=== PATIENT | female | born 1945 | race Caucasian/White ===

== ENCOUNTER 2017-10-15 23:20 | Emergency (ER) | payer MEDICARE, OTHER ==
[~2017-10-15] VITALS: Ht 167.6 cm; Wt 82.6 kg
[~2017-10-15 23:20] MED LIST: APAP500; FLECAINIDE ACET50 M1 PO; LASIX 20 MG TAB20 MG; LEVOTHYROXINE 0.1 MG; LOPRESSOR50; MYRBETRIQ50 MG PO; NEURONTIN 300300 M1; NORVASC5 MG PO; OMEPRAZOLE; POTASSIUM CL; REQUIP 1 MG TABL1 M1 PO; TRAZODONE HCL50 MG PO; VITAMIN D2000 UNIT; VOLTAREN GEL 1100 G2; XARELTO20 MG
[2017-10-15 23:48] LABS: ABSOLUTE EOSINOPHILS 0.1 thou/uL (0.0-0.7); ABSOLUTE LYMPHOCYTES 1.5 thou/uL (0.8-5.3); ABSOLUTE MONOCYTES 0.5 thou/uL (0.0-1.2); ABSOLUTE NEUTROPHILS 2.4 thou/uL (1.6-8.1); BASOPHILS 0.7 %; EOSINOPHILS 2.1 %; HEMOGLOBIN 13.4 gm/dL (12.0-15.0); LYMPHOCYTES 34.3 %; MCH 29.8 pg (26.0-34.0); MCHC 34.2 g/dL (28.0-37.0); MONOCYTES 10.8 %; MPV 8.9 fl. (7.2-11.1); NUCLEATED RBCS 0 /100WBC; PLATELET COUNT* 144 thou/uL (150-400); POLYS 52.1 %; RBC 4.49 mil/uL (4.20-5.00); WBC 4.5 thou/uL (4.0-11.0)
[2017-10-15 23:56] LABS: ANION GAP 8 mmol/L (7-16); BUN 18 mg/dL (7-18); CALCIUM 8.9 mg/dL (8.5-10.1); CHLORIDE 104 mmol/L (98-107); CO2 29 mmol/L (21-32); CREATININE 1.1 mg/dL (0.6-1.3); GLUCOSE 135 mg/dL (70-99); POTASSIUM 3.5 mmol/L (3.5-5.1); SODIUM 141 mmol/L (136-145)
[2017-10-16 00:05] LABS: APTT 28.3 Seconds (25.0-31.3); INR 1.1; PROTIME 10.6 Seconds (9.20-11.50)
[2017-10-16 00:14] LABS: ALBUMIN 3.8 g/dL (3.4-5.0); ALKALINE PHOSPHATASE 119 U/L (46-116); CK-MB MASS 2.1 ng/mL (<0.5-3.6); LIPASE 156 U/L (73-393); NT-PRO BRAIN NAT PEPTIDE 436 pg/mL (<300); SGOT 12 U/L (15-37); SGPT 19 U/L (30-65); TOTAL BILIRUBIN 0.3 mg/dL (<0.1-1.0); TROPONIN-I LEVEL <0.06 ng/mL (<0.06)
[2017-10-16 00:28] VITALS: BP 117/66
--- NOTE | 2017-10-16 10:25 | EKG ---
[place] [address] ELECTROCARDIOGRAM REPORT Name: DAVID MESA Room: [facility]#: [id number] Admission: 10/15/17 Attend Phys: Discharge: 10/16/17 Date of : 45 Report #: [id number] THIS REPORT FOR: //name// [facility] ED Test Date: 2017-10-15 Test Time: 23:29:57 Pat Name: DAVID MESA Department: Room: Gender: F Senior Quality Assurance Engineer: JONAH : 1945 Requested By: Nico Carter Order Number: [id number] MD: Gilmer Nichols Measurements Intervals [place] Rate: 71 P: 56 [place]: 140 QRS: 11 QRSD: 99 T: 64 QT: 447 QTc: 486 Interpretive Statements Sinus rhythm Probable left atrial enlargement Mild ST depression, lateral leads Borderline prolonged QT interval Compared to ECG 06/03/2017 21:27:01 ST (T wave) deviation now present Electronically Signed On 10-16-2017 10:25:06 HUMAN RESOURCES MANAGER MANUFACTURING by Gilmer Nichols [email or web address] <ELECTRONICALLY SIGNED> By: Gilmer Nichols MD, [facility] 10/16/17 1025 28 28 Gilmer Nichols MD, FAC /EPI
== END 2017-10-16 00:29 | disposition home or self-care (01) ==
LOC: M.ERS 23:20
PROVIDERS: Family Medicine
DX: R00.2 Palpitations (principal); K21.9 Gastro-esophageal reflux disease without esophagitis; F10.99 Alcohol use, unspecified with unspecified alcohol-induced disorder; Z90.711 Acquired absence of uterus with remaining cervical stump; Z88.2 Allergy status to sulfonamides; Z88.1 Allergy status to other antibiotic agents; Z88.8 Allergy status to other drugs, medicaments and biological substances

== ENCOUNTER → 2018-11-15 | Outpatient (CLI) | payer MEDICARE, OTHER | LOC: M.RAD 11:16 | DX: M54.5 Low back pain (principal); R05 Cough; Z90.49 Acquired absence of other specified parts of digestive tract ==

== ENCOUNTER 2019-03-27 21:13 | Inpatient (IN) | payer MEDICARE, OTHER ==
[~2019-03-27] VITALS: Ht 167.6 cm; Wt 80.3 kg
[~2019-03-27 21:13] MED LIST changes: -APAP500; -LASIX 20 MG TAB20 MG; +LASIX 20 MG TAB20 MG PO; -LEVOTHYROXINE 0.1 MG; -LOPRESSOR50; +LOPRESSOR50 PO; -NEURONTIN 300300 M1; +NEURONTIN 300300 M1 PO; -OMEPRAZOLE; +OMEPRAZOLE PO; -POTASSIUM CL; +POTASSIUM CL PO; +SYNTHROID300 MCG PO; +TYLENOL EXTRA500 MG PO; -VITAMIN D2000 UNIT; +VITAMIN D2000 UNIT PO; -VOLTAREN GEL 1100 G2; +VOLTAREN GEL 1100 G2 TOP; -XARELTO20 MG; +XARELTO20 MG PO
[2019-03-27 21:25] VITALS: BP 141/86
[2019-03-27 22:05] LABS: ABSOLUTE BASOPHILS 0.1 thou/uL (0.0-0.2); ABSOLUTE LYMPHOCYTES 1.8 thou/uL (0.8-5.3); ABSOLUTE MONOCYTES 0.4 thou/uL (0.0-1.2); ABSOLUTE NEUTROPHILS 2.9 thou/uL (1.6-8.1); BASOPHILS 1.3 %; EOSINOPHILS 0.9 %; HEMATOCRIT 41.5 % (37.0-47.0); HEMOGLOBIN 14.5 gm/dL (12.0-15.0); LYMPHOCYTES 34.4 %; MCH 30.7 pg (26.0-34.0); MCV 87.7 fL (80.0-100.0); MONOCYTES 7.8 %; MPV 8.8 fl. (7.2-11.1); NUCLEATED RBCS 0 /100WBC; PLATELET COUNT* 181 thou/uL (150-400); POLYS 55.6 %; RBC 4.72 mil/uL (4.20-5.00); RDW-CV 12.9 % (10.5-14.5); WBC 5.3 thou/uL (4.0-11.0)
[2019-03-27 22:16] LABS: PROTIME 10.7 Seconds (9.20-11.50)
[2019-03-27 22:17] LABS: ANION GAP 10 mmol/L (7-16); BUN 21 mg/dL (7-18); CALCIUM 9.6 mg/dL (8.5-10.1); CHLORIDE 106 mmol/L (98-107); CO2 25 mmol/L (21-32); GLUCOSE 92 mg/dL (70-99); POTASSIUM 3.6 mmol/L (3.5-5.1); SODIUM 141 mmol/L (136-145)
[2019-03-27 22:23] LABS: ALKALINE PHOSPHATASE 90 U/L (46-116); LIPASE 128 U/L (73-393); NT-PRO BRAIN NAT PEPTIDE 471 pg/mL (<300); SGOT 22 U/L (15-37); SGPT 29 U/L (30-65); TOTAL BILIRUBIN 0.6 mg/dL (<0.1-1.0); TOTAL PROTEIN 7.4 g/dL (6.4-8.2); TROPONIN-I LEVEL <0.06 ng/mL (<0.06)
--- NOTE | 2019-03-27 22:36 | NUR ---
CALLED TO ROOM PT HR RAPIDLY DROPPED MEDS GIVEN PT STABLE AT THIS TIME
[2019-03-28 02:19] VITALS: BP 114/43
--- NOTE | 2019-03-28 04:51 | NUR ---
PT HAS RESTED WELL THIS SHIFT. PT VOICED NO C/O OF PAIN OR DISCOMFORT. O2 2L BNC INTACT. DAVIES INTACT AND PATENT DRAINING CLEAR YELLOW URINE TO BEDSIDE BAG. MONITORS INTACT WITH ALARMS SET. NO ACUTE DISTRESS NOTED. WILLCONTINUE TO MONITOR
[2019-03-28 06:28] VITALS: BP 132/46
--- NOTE | 2019-03-28 15:40 | EKG ---
[place] [address] ELECTROCARDIOGRAM REPORT Name: DAVID MESA Room: [place] [address] ADM IN [facility]#: [id number] Admission: 03/27/19 Attend Phys: Apolonia Calderón MD Discharge: Date of : 45 Report #: [id number] THIS REPORT FOR: //name// [facility] ED Test Date: 2019-03-27 Test Time: 21:22:22 Pat Name: DAVID MESA Department: Room: [facility] Gender: F Wildlife Control Operator: MS : 1945 Requested By: Linda Mejia Order Number: [id number] MD: Nasir Gross Measurements Intervals [place] Rate: 148 P: [place]: QRS: 21 QRSD: 94 T: 65 QT: 340 QTc: 534 Interpretive Statements Atrial fibrillation with rapid V-rate ST depression, probably rate related Compared to ECG 10/15/2017 23:29:57 Sinus rhythm no longer present ST (T wave) deviation still present Electronically Signed On 03-28-2019 15:40:46 CDT by Nasir Gross [email or web address] <ELECTRONICALLY SIGNED> By: Nasir Gross MD, FACC 03/28/19 1540 21 21 Nasir Gross MD, [facility] /EPI
--- NOTE | 2019-03-28 15:42 | EKG ---
[place] [address] ELECTROCARDIOGRAM REPORT Name: DAVID MESA Room: [place] [address] ADM IN [facility]#: [id number] Admission: 03/27/19 Attend Phys: Apolonia Calderón MD Discharge: Date of : 45 Report #: [id number] THIS REPORT FOR: //name// [facility] ED Test Date: 2019-03-27 Test Time: 22:02:11 Pat Name: DAVID MESA Department: Room: [facility] Gender: F Living Manager: MS : 1945 Requested By: Linda Mejia Order Number: [id number] MD: Nasir Gross Measurements Intervals [place] Rate: 41 P: 0 SD: 57 QRS: 20 QRSD: 88 T: 80 QT: 453 QTc: 375 Interpretive Statements Sinus bradycardia with premature atrial contractions Delayed R-wave progression Repol abnrm suggests ischemia, anterolateral Compared to ECG 10/15/2017 23:29:57 Atrial premature complex(es) now present Early repolarization now present Possible ischemia now present Sinus rhythm no longer present ST (T wave) deviation no longer present Electronically Signed On 03-28-2019 15:42:04 CDT by Nasir Gross [email or web address] <ELECTRONICALLY SIGNED> By: Nsair Gross MD, FAC 03/28/19 154 01 01 Nasir Gross MD, [facility] /EPI
[2019-03-28 16:44] VITALS: BP 125/50
[2019-03-28 17:00] VITALS: BP 154/55
--- NOTE | 2019-03-28 17:39 | NUR ---
1700 PATIENT ADMITTED TO 219 PER BED FROM ER. AGREE WITH ADMISSION ASSESSMENT AND HISTORY. ORIENTED TO ROOM. SINUS CHENG
--- NOTE | 2019-03-28 18:40 | NUR ---
PATIENT RECEIVED FROM ER THIS AFTERNOON. VSS ALTHOUGH BRADYCARDIC. WILL CONTINUE TO MONITOR CLOSELY
[2019-03-28 23:48] VITALS: BP 143/98
[2019-03-29] VITALS (7 sets, daily range): BP systolic 149–182; BP diastolic 60–73
[2019-03-29 00:09] LABS: ABSOLUTE EOSINOPHILS 0.1 thou/uL (0.0-0.7); ABSOLUTE LYMPHOCYTES 1.1 thou/uL (0.8-5.3); ABSOLUTE MONOCYTES 0.3 thou/uL (0.0-1.2); ABSOLUTE NEUTROPHILS 1.8 thou/uL (1.6-8.1); BASOPHILS 0.8 %; EOSINOPHILS 1.9 %; HEMATOCRIT 35.5 % (37.0-47.0); LYMPHOCYTES 34.4 %; MCH 30.6 pg (26.0-34.0); MCHC 34.6 g/dL (28.0-37.0); MCV 88.5 fL (80.0-100.0); MONOCYTES 9.2 %; MPV 8.8 fl. (7.2-11.1); NUCLEATED RBCS 0 /100WBC; PLATELET COUNT* 120 thou/uL (150-400); POLYS 53.7 %; RBC 4.01 mil/uL (4.20-5.00); RDW-CV 12.7 % (10.5-14.5); WBC 3.3 thou/uL (4.0-11.0)
[2019-03-29 00:18] LABS: HEMOGLOBIN 12.3 gm/dL (12.0-15.0)
[2019-03-29 00:33] LABS: CALCIUM 8.6 mg/dL (8.5-10.1); POTASSIUM 4.5 mmol/L (3.5-5.1)
--- NOTE | 2019-03-29 01:23 | NUR ---
ASSUMED CARE OF PT AT 1900. PT IS ALERT AND ORIENTED. VSS. PERRLA. NO COMPLAINTS OF PAIN. PT IS IN A FIB ON THE TELEMETRY. PT IS RESTING COMFORTABLY IN BED. RESPIRATIONS ARE EVEN AND NONLABORED. WILL CONTINUE TO MONITOR PT.
--- NOTE | 2019-03-29 09:37 | NUR ---
ASSUMED CARE OF PT AT 0730. PT RESTING IN BED. PT A&0X4, DENIES ANY PAIN OR SHORTNESS OF BREATH AT THIS TIME. PT TRACING SB ON THE AIRCRAFT AIR CONDITIONING MECHANIC. ON RA SAT UPPER 90'S. PT UP AD JAKE IN ROOM. IVF. CARDIOLOGY CONSULT IN PLACE. PT GOAL FOR TODAY IS MONITOR HEART RATE AND RHYTHM, INCREASE ACTIVITY AND REMAIN FREE FROM CHEST PAIN, SHORTNESS OF BREATH AND DIZZINESS. AM ASSESSMENT CHARTED. MEDICATIONS PER MAR. PT REPOSITIONS SELF. HOURLY ROUNDING OBSERVED. BED IN LOW POSITION. CALL LIGHT WITHIN REACH. WILL CONTINUE PLAN OF CARE.
--- NOTE | 2019-03-29 09:50 | CON ---
[address] [address] CONSULTATION Name: DAVID MESA Room: [address] IN .R.#: [id number] Admission: 03/27/19 Attend Phys: Apolonia Calderón MD Discharge: Date of : 45 Report #: [id number] THIS REPORT FOR: //name// CC: Apolonia Tracy MD [facility] CARDIOLOGY CONSULT REASON FOR CONSULTATION: Atrial fibrillation with rapid ventricular response rate. HISTORY OF PRESENT ILLNESS: The patient is a very pleasant 73-year-old white female with a history of paroxysmal atrial fibrillation. She has been maintaining sinus rhythm on flecainide and metoprolol. She is chronically anticoagulated with Xarelto and having no bleeding problems. She noted on her I-watch last night that her heart rate was fast. She presented to the Emergency Room and was found to be in atrial fibrillation with rapid ventricular response rate. She was given a bolus of IV diltiazem, which she did convert with, but then developed profound bradycardia and received a single dose of atropine. At the time of my interview, the patient is stable. Her heart rate is in the 50s. She is in sinus rhythm. Initial EKG showed atrial fibrillation with rapid ventricular response rate. Troponins are unremarkable. She did note 2 separate occasions of atypical chest discomfort, but does not sound like angina. She also notes mild headache. She is without other cardiac complaints at this time. PAST MEDICAL HISTORY: 1. Paroxysmal atrial fibrillation. 2. Hypertension. 3. Chronic anticoagulation. 4. Hypercoagulable state. 5. Localized edema of the lower extremities. 6. History of retroperitoneal hematoma with Xarelto, remotely. 7. GERD. 8. Restless legs syndrome. 9. Status post partial hysterectomy. FAMILY HISTORY: Noncontributory. SOCIAL HISTORY: The patient is a lifelong nonsmoker. She drinks alcohol rarely or occasionally. ALLERGIES: PROPOXYPHENE, SULFAMETHOXAZOLE AND TRIMETHOPRIM. CURRENT MEDICATIONS: Xarelto 20 mg daily, flecainide 75 mg b.i.d., furosemide 20 mg daily, levothyroxine 0.1 mg daily, metoprolol tartrate 50 mg q.a.m. and [address] [place] [address] CONSULTATION Name: ALLHEMANTDAVID Wesley Room: [address]#: [id number] Admission: 03/27/19 Attend Phys: Apolonia Calderón MD Discharge: Date of : 45 Report #: [id number] q.p.m., omeprazole 20 mg daily, ropinirole 2 mg at bedtime, trazodone 100 mg p.o. at bedtime, gabapentin 300 mg t.i.d., vitamin D3 2000 units daily, Tylenol p.r.n., Myrbetriq 100 mg at bedtime, Voltaren gel topically as directed. REVIEW OF SYSTEMS: The patient reports mild palpitations, chest discomfort and headache. She denies chest pain or significant shortness of breath. Review of systems otherwise unremarkable. PHYSICAL EXAMINATION: VITAL SIGNS: Stable. Blood pressure of 163/59, pulse is 47 and regular. GENERAL: This is a pleasant lady who is in no distress. Mood and affect appropriate. HEENT: Extraocular muscles intact. Mucous membranes are moist. NECK: Shows no jugular venous distention or carotid bruit. LUNGS: Reveals clear lung miller without wheezes or rales. CARDIAC: Reveals a regular rhythm with normal S1, S2. I do not appreciate a gallop or murmur. ABDOMEN: Reveals normal bowel sounds. The abdomen is soft and nontender. EXTREMITIES: Shows no significant edema. Peripheral pulses are 2+ and palpable. SKIN: Dry. LABORATORY DATA: Reviewed. Sodium 141, potassium 3.6, chloride 106, bicarbonate 25, BUN 21, creatinine 1.0, serum glucose 92. LFTs are within normal limits. Troponin less than 0.06 on 3 separate occasions, white blood cell count 5.3, hemoglobin 14.5, platelet count 181,000. Chest x-ray shows no acute pulmonary abnormality. IMPRESSION AND RECOMMENDATION: 1. Recurrent paroxysmal atrial fibrillation. The patient is now back in sinus rhythm. I will increase her flecainide to 100 mg twice daily. Continue moderate dose beta sidney as tolerated and directed by pulse rate. Continue Xarelto for anticoagulation. 2. Hypertension. Blood pressure mildly elevated. The patient had been on losartan/hydrochlorothiazide. We will resume and adjust as needed for adequate blood pressure control. 3. Hypercoagulable state. Continue Xarelto. 4. Chronic anticoagulation. She is tolerating Xarelto without significant bleeding problem. 5. Localized edema presently stable. We will follow clinically. [address] [address] CONSULTATION Name: DAVID MESA Room: [address] IN M.R.#: [id number] Admission: 03/27/19 Attend Phys: Apolonia Calderón MD Discharge: Date of : 45 Report #: [id number] 6. Atypical chest pain. No indication of acute coronary syndrome. Consider outpatient stress testing. <ELECTRONICALLY SIGNED> By: Nasir Gross MD, FACC 03/29/19 0950 1145 2257Nasir Gross MD, FACC /nt
--- NOTE | 2019-03-29 11:22 | NUR ---
Pt is A&O. Resides at home with her . Active and independent. No DME. No hx of HH or SNF. Goal is home at dc, no needs anticipated. Following.
--- NOTE | 2019-03-29 16:32 | NUR ---
NO ACUTE CHANGES THROUGHOUT SHIFT. REFER TO CHARTING. PT CONTINUES TO TRACE SINUS CHENG ON THE BUCKET OPERATOR. MEDICATION ADJUSTMENTS MADE TODAY PER CARDIOLOGY. REFER TO EMAR. PT DENIES ANY PAIN OR SHORTNESS OF BREATH. ON RA SAT UPPER 90'S. PT UP AD JAKE IN ROOM. IVF. PT SLOWLY PROGRESSING TOWARDS GOALS. MEDICATIONS PER MAR. PT REPOSITIONS SELF. HOURLY ROUNDING OBSERVED. BED IN LOW POSITION. CALL LIGHT WITHIN REACH. WILL CONTINUE PLAN OF CARE.
[2019-03-30 04:00] VITALS: BP 98/33
[2019-03-30 08:00] VITALS: BP 114/51
--- NOTE | 2019-03-30 09:42 | NUR ---
ASSUMED CARE OF PT AT 0730. PT RESTING IN BED. PT A&0X4, DENIES ANY PAIN OR SHORTNESS OF BREATH AT THIS TIME. PT STATES SHE RESTED VERY WELL LAST NIGHT AND DOESNT REMEMBER ANYTHING. PT TRACING SINUS CHENG ON THE INTEGRATION SOFTWARE ENGINEER. VSS. ON RA SAT UPPER 90'S. PT UP AD JAKE IN ROOM. IVF. TROPS NEGATIVE. PT GOAL FOR TODAY IS PAIN AND ANXIETY MGMT, REMAIN IN SINUS RHYTHM- AND CARDIO CONSULT IN PLACE. AM ASSESSMENT CHARTED. MEDICATIONS PER DEC. PT REPOSITIONS SELF. HOURLY ROUNDING OBSERVED. BED IN LOW POSITION. CALL LIGHT WITHIN REACH. WILL CONTINUE PLAN OF CARE.
[2019-03-30] MEDS ORDERED: COZAAR 25 MG TA25 M2 PO (10:21)
[2019-03-30] MEDS ORDERED: PROCARDIA XL60 MG PO (10:21)
[2019-03-30 12:00] VITALS: BP 150/75
--- NOTE | 2019-03-30 13:40 | NUR ---
PT REMAINS IN SINUS RHYTHM. NO COMPLAINS OF CHEST PAIN OR SHORTNESS OF BREATH. DISCHARGE ORDERS RECEIVED. DISCHARGE INSTRUCTIONS, CARE NOTES, SCRIPTS AND FOLLOW UP APPTS GIVEN TO PT. PT COMMUNICATES UNDERSTANDING OF DISCHARGE TEACHING. IV AND STUDIO COUCH FRAME BUILDER REMOVED. PT DISCHARGED WITH ALL BELONGINGS AND PAPERWORK VIA WHEELCHAIR WITH NURSING STAFF TO SPOUSE OWN PERSONAL VEHICLE.
--- NOTE | 2019-03-30 17:12 | EKG ---
[place] [address] ELECTROCARDIOGRAM REPORT Name: DAVID MESA Room: [address] IN ..#: [id number] Admission: 03/27/19 Attend Phys: Apolonia Calderón MD Discharge: 03/30/19 Date of : 45 Report #: [id number] THIS REPORT FOR: //name// [facility] Test Date: 2019-03-29 Test Time: 19:08:38 Pat Name: DAVID MESA Department: Room: [address] Gender: F Resolution Rep: : 1945 Requested By: Apolonia Calderón Order Number: [id number] Reading MD: Nasir Gross Measurements Intervals [place] Rate: 67 P: 60 MT: 148 QRS: 3 QRSD: 99 T: 80 QT: 454 QTc: 480 Interpretive Statements Sinus rhythm Borderline ST depression, lateral leads Compared to ECG 03/27/2019 22:02:11 ST (T wave) deviation now present Sinus bradycardia no longer present Atrial premature complex(es) no longer present Early repolarization no longer present Possible ischemia no longer present Electronically Signed On 03-30-2019 17:12:03 CDT by Nasir Gross [email or web address] <ELECTRONICALLY SIGNED> By: Nasir Gross MD, FACC 03/30/19 1712 07 190 Nasir Gross MD, FACC /EPI
--- NOTE | 2019-03-30 17:14 | EKG ---
[place] [address] ELECTROCARDIOGRAM REPORT Name: DAVID MESA Room: [address] IN M..#: [id number] Admission: 03/27/19 Attend Phys: Apolonia Calderón MD Discharge: 03/30/19 Date of : 45 Report #: [id number] THIS REPORT FOR: //name// [facility] Test Date: 2019-03-29 Test Time: 22:58:15 Pat Name: DAVID MESA Department: Room: [address] Gender: F Front End Driver: JY : 1945 Requested By: Apolonia Calderón Order Number: [id number] Reading MD: Nasir Gross Measurements Intervals [place] Rate: 142 P: [place]: QRS: -8 QRSD: 93 T: 133 QT: 338 QTc: 520 Interpretive Statements Atrial flutter LVH with secondary repolarization abnormality ST depression, probably rate related Prolonged QT interval Compared to ECG 03/27/2019 22:02:11 Left ventricular hypertrophy now present ST (T wave) deviation now present Prolonged QT interval now present Sinus bradycardia no longer present Atrial premature complex(es) no longer present Possible ischemia no longer present Electronically Signed On 03-30-2019 17:13:53 CDT by Nasir Gross [email or web address] <ELECTRONICALLY SIGNED> By: Nasir Gross MD, [facility] 03/30/19 1713 2258 2258 Nasir Gross MD, [facility] /EPI
--- NOTE | 2019-03-30 17:14 | EKG ---
[place] [address] ELECTROCARDIOGRAM REPORT Name: DAVID MESA Room: [address] IN ..#: [id number] Admission: 03/27/19 Attend Phys: Apolonia Calderón MD Discharge: 03/30/19 Date of : 45 Report #: [id number] THIS REPORT FOR: //name// [facility] Test Date: 2019-03-29 Test Time: 23:24:22 Pat Name: DAVID MESA Department: Room: [address] Gender: F Precision Jig Grinder: : 1945 Requested By: Apolonia Calderón Order Number: [id number] Reading MD: Nasir Gross Measurements Intervals [place] Rate: 145 P: [place]: QRS: 0 QRSD: 103 T: 148 QT: 365 QTc: 567 Interpretive Statements Atrial flutter Repolarization abnormality, prob rate related Prolonged QT interval Compared to ECG 03/27/2019 22:02:11 Prolonged QT interval now present Sinus bradycardia no longer present Atrial premature complex(es) no longer present Possible ischemia no longer present Electronically Signed On 03-30-2019 17:14:13 CDT by Nasir Gross [email or web address] <ELECTRONICALLY SIGNED> By: Nasir Gross MD, FACC 03/30/19 1714 2324 2324 Nasir Gross MD, FACC /EPI
--- NOTE | 2019-03-30 17:15 | EKG ---
[place] [address] ELECTROCARDIOGRAM REPORT Name: DAVID MESA Room: [address] DIS IN M..#: [id number] Admission: 03/27/19 Attend Phys: Apolonia Calderón MD Discharge: 03/30/19 Date of : 45 Report #: [id number] THIS REPORT FOR: //name// [facility] Test Date: 2019-03-30 Test Time: 00:14:49 Pat Name: DAVID MESA Department: Room: [address] Gender: F High Reach Operator: UNKNOWN : 1945 Requested By: Apolonia Calderón Order Number: [id number] Lisa MD: Nasir Gross Measurements Intervals [place] Rate: 112 P: [place]: QRS: 21 QRSD: 94 T: -16 QT: 407 QTc: 556 Interpretive Statements Atrial fibrillation Borderline repolarization abnormality ST elevation, consider inferior injury Prolonged QT interval Compared to ECG 03/27/2019 22:02:11 ST (T wave) deviation now present Myocardial infarct finding now present Prolonged QT interval now present Sinus bradycardia no longer present Atrial premature complex(es) no longer present Possible ischemia no longer present Electronically Signed On 03-30-2019 17:15:06 CDT by Nasir Gross [email or web address] <ELECTRONICALLY SIGNED> By: Nasir Gross MD, [facility] 03/30/19 1715 0014 0014 Nasir Gross MD, [facility] /EPI
--- NOTE | 2019-03-30 17:15 | EKG ---
[place] [address] ELECTROCARDIOGRAM REPORT Name: DAVID MESA Room: [address] IN ..#: [id number] Admission: 03/27/19 Attend Phys: Apolonia Calderón MD Discharge: 03/30/19 Date of : 45 Report #: [id number] THIS REPORT FOR: //name// [facility] Test Date: 2019-03-30 Test Time: 00:15:35 Pat Name: DAVID MESA Department: Room: [address] Gender: F Cone Examiner: SSEE1 : 1945 Requested By: Apolonia Calderón Order Number: [id number] Lisa MD: Nasir Gross Measurements Intervals [place] Rate: 117 P: [place]: QRS: 7 QRSD: 101 T: 33 QT: 397 QTc: 554 Interpretive Statements Atrial fibrillation Nonspecific ST depression Prolonged QT interval Compared to ECG 03/27/2019 22:02:11 ST (T wave) deviation now present Prolonged QT interval now present Sinus bradycardia no longer present Atrial premature complex(es) no longer present Early repolarization no longer present Possible ischemia no longer present Electronically Signed On 03-30-2019 17:15:12 CDT by Nasir Gross [email or web address] <ELECTRONICALLY SIGNED> By: Nasir Gross MD, FACC 03/30/19 1715 0015 0015 Nasir Gross MD, FAC /EPI
== END 2019-03-30 13:39 | disposition home or self-care (01) | DRG 309 ==
LOC: M.ERS 21:13 → M.TBA-ER 22:42 → M.2W 03-28 17:08
PROVIDERS: Internal Medicine; Personal Emergency Response Attendant; ADMIT Internal Medicine
DX: I48.0 Paroxysmal atrial fibrillation (principal); D68.59 Other primary thrombophilia; I20.9 Angina pectoris, unspecified; I10 Essential (primary) hypertension; K21.9 Gastro-esophageal reflux disease without esophagitis; G25.81 Restless legs syndrome; Z90.711 Acquired absence of uterus with remaining cervical stump; Z88.2 Allergy status to sulfonamides; Z88.8 Allergy status to other drugs, medicaments and biological substances; Z79.01 Long term (current) use of anticoagulants; Z79.899 Other long term (current) drug therapy

== ENCOUNTER 2019-10-18 02:53 | Inpatient (IN) | payer MEDICARE, OTHER ==
[~2019-10-18] VITALS: Ht 167.6 cm; Wt 83.9 kg
[~2019-10-18 02:53] MED LIST changes: +COZAAR 25 MG TA25 M2 PO; +PROCARDIA XL60 MG PO
[2019-10-18 03:05] VITALS: BP 137/60
[2019-10-18] MEDS ORDERED: HYDROCHLOROTHIA25 M1 (03:12)
[2019-10-18 04:48] LABS: CALCIUM 8.4 mg/dL (8.5-10.1); CREATININE 1.2 mg/dL (0.6-1.3); POTASSIUM 4.1 mmol/L (3.5-5.1)
[2019-10-18 04:52] LABS: ABSOLUTE LYMPHOCYTES 1.5 thou/uL (0.8-5.3); ABSOLUTE MONOCYTES 0.2 thou/uL (0.0-1.2); ABSOLUTE NEUTROPHILS 1.7 thou/uL (1.6-8.1); BASOPHILS 1.1 %; EOSINOPHILS 1.1 %; HEMATOCRIT 39.9 % (37.0-47.0); HEMOGLOBIN 14.2 gm/dL (12.0-15.0); LYMPHOCYTES 41.8 %; MCH 31.6 pg (26.0-34.0); MCHC 35.5 g/dL (28.0-37.0); MCV 88.8 fL (80.0-100.0); MONOCYTES 6.5 %; MPV 8.9 fl. (7.2-11.1); NUCLEATED RBCS 0 /100WBC; PLATELET COUNT* 182 thou/uL (150-400); POLYS 49.5 %; RBC 4.49 mil/uL (4.20-5.00); RDW-CV 12.6 % (10.5-14.5); WBC 3.5 thou/uL (4.0-11.0)
[2019-10-18 04:55] LABS: APTT 32.8 Seconds (25.0-31.3); INR 1.1; PROTIME 11.5 Seconds (9.20-11.50)
[2019-10-18 05:03] LABS: ALBUMIN 3.6 g/dL (3.4-5.0); CK-MB MASS 3.3 ng/mL (<0.5-3.6); MAGNESIUM 1.8 mg/dL (1.8-2.4); TOTAL BILIRUBIN 0.3 mg/dL (<0.1-1.0)
[2019-10-18 05:48] LABS: TOTAL PROTEIN 6.6 g/dL (6.4-8.2)
--- NOTE | 2019-10-18 07:00 | NUR ---
REPORT RECEIVED FROM MAKEDA BUNDY. THIS NURSE TO ASSUME PT CARE AT THIS TIME.
--- NOTE | 2019-10-18 07:34 | NUR ---
HEART RATE ALARMED. PT WENT FROM LOW 100s ON THE MONITOR TO SINUS BRADYCARDIA, RATE 38. NURSE CHECKED ON PT. PT DENIES CHEST PAIN, SOA, BUT STATES SHE IS DIZZY WHILE LAYING SEMI FOWLERS IN BED. EKG PERFORMED BY THIS NURSE AND SHARED WITH DR. LOREDO. AKILZEM DRIP STOPPED. IV FLUIDS CONTINUING TO INFUSE. DR. IRAHETA PAGED.
[2019-10-18 07:35] VITALS: BP 141/52
--- NOTE | 2019-10-18 13:34 | NUR ---
REPORT GIVEN TO SCOTTY Salomon RN WHO IS TO ASSUME PT CARE AT THIS TIME.
[2019-10-18] MEDS ORDERED: TYLENOL325 M1 PO (15:11)
[2019-10-18 15:34] VITALS: BP 136/47
--- NOTE | 2019-10-19 10:25 | CON ---
[address] [address] CONSULTATION Name: DAVID MESA Room: [address] IN ..#: [id number] Admission: 10/18/19 Attend Phys: John Giles Discharge: 10/18/19 Date of : 45 Report #: [id number] THIS REPORT FOR: //name// CC: Thony Noble MD INDICATION: Paroxysmal atrial fibrillation with a rapid ventricular response rate. HISTORY OF PRESENT ILLNESS: The patient is a very pleasant 74-year-old white female who is known to our service. She has a history of paroxysmal atrial fibrillation. She is on chronic anticoagulation with Xarelto and having no bleeding problems. She had been on flecainide 100 mg twice daily with control of her rhythm. Last night, she had some upset stomach. She went to sleep and then was awoken with atrial fibrillation with rapid ventricular response rate. She presented to the Emergency Room. She spontaneously has converted to sinus rhythm. EKG on arrival shows atrial fibrillation with a rapid ventricular response rate. On telemetry monitoring, presently she is in sinus rhythm. PAST MEDICAL HISTORY: 1. Paroxysmal atrial fibrillation. 2. Hypothyroidism. 3. Hypertension. 4. Gastroesophageal reflux disease. 5. Restless leg syndrome. 6. Overactive bladder. PAST SURGICAL HISTORY: 1. Cholecystectomy. 2. Appendectomy. 3. Hysterectomy. 4. Ovarian cyst removal. FAMILY HISTORY: The patient's brother and mother in their 40s with heart disease. SOCIAL HISTORY: The patient drinks alcohol occasionally. She does not smoke. ALLERGIES: DARVON, BACTRIM. HOME MEDICATIONS: Hydrochlorothiazide 25 mg daily, Xarelto 20 mg daily, flecainide 100 mg b.i.d., Lasix 20 mg daily, Synthroid 0.1 mg daily, omeprazole 20 mg daily, potassium supplement 1 tablet daily, ropinirole 2 mg at bedtime, trazodone 100 mg p.o. at bedtime, gabapentin 300 mg at bedtime, vitamin D 2000 units p.o. daily, Myrbetriq 100 mg p.o. at bedtime, Voltaren gel topically as directed b.i.d., losartan [address] [place] [address] CONSULTATION Name: DAVID MESA Room: [address]#: [id number] Admission: 10/18/19 Attend Phys: John blas [place] Discharge: 10/18/19 Date of : 45 Report #: [id number] PHYSICAL EXAMINATION: VITAL SIGNS: Blood pressure 136/47, pulse 54 and regular. GENERAL: This is a pleasant lady in no distress. Mood and affect appropriate. HEENT: Extraocular muscles intact. Mucous membranes are moist. NECK: Shows no jugular venous distention. There are no carotid bruits. CHEST: Reveals clear lung miller without wheezes or rales. CARDIOVASCULAR: Reveals a regular rhythm that is bradycardic without gallop or murmur. ABDOMEN: Reveals normal bowel sounds. The abdomen is soft, nontender. EXTREMITIES: Shows no edema. Peripheral pulses 2+ and palpable. SKIN: Warm and dry. IMPRESSION AND RECOMMENDATIONS: 1. Paroxysmal atrial fibrillation. The patient has spontaneously converted to sinus rhythm. I would increase flecainide to 150 mg b.i.d. Continue Xarelto indefinitely. 2. Hypercoagulable state due to atrial fibrillation. Continue Xarelto 20 mg daily. 3. Chronic anticoagulation. The patient tolerating without bleeding problems. 4. Hypertension. Blood pressure adequately controlled on current regimen. 5. Hypothyroidism, on replacement therapy. From a cardiac standpoint, the patient is safe to be discharged to home with outpatient followup. <ELECTRONICALLY SIGNED> By: Nasir Gross MD, FACC 10/19/19 1025 1418 2244Nasir Gross MD, FACC /nt
--- NOTE | 2019-10-19 12:28 | EKG ---
[place] [address] ELECTROCARDIOGRAM REPORT Name: DAVID MESA Room: [address] IN [facility]#: [id number] Admission: 10/18/19 Attend Phys: John Giles Discharge: 10/18/19 Date of : 45 Report #: [id number] THIS REPORT FOR: //name// [facility] ED Test Date: 2019-10-18 Test Time: 02:58:35 Pat Name: DAVID MESA Department: Room: [facility] Gender: F Impregnating Machine Operator: : 1945 Requested By: Nico Carter Order Number: [id number] MD: Gilmer Nichols Measurements Intervals [place] Rate: 136 P: [place]: QRS: -10 QRSD: 93 T: 107 QT: 345 QTc: 520 Interpretive Statements Atrial fibrillation Repolarization abnormality, prob rate related Prolonged QT interval Baseline wander in lead(s) V1 Compared to ECG 03/30/2019 00:15:35 Early repolarization now present ST (T wave) deviation persists Electronically Signed On 10-19-2019 12:28:17 TYPING OFFICE WORKER by Gilmer Nichols [email or web address] <ELECTRONICALLY SIGNED> By: Gilmer Nichols MD, [facility] 10/19/19 1228 0258 0258 Gilmer Nichols MD, [facility] /EPI
--- NOTE | 2019-10-19 12:30 | EKG ---
[place] [address] ELECTROCARDIOGRAM REPORT Name: DAVID MESA Room: [place] [address] [facility]#: [id number] Admission: 10/18/19 Attend Phys: John Giles Discharge: 10/18/19 Date of : 45 Report #: [id number] THIS REPORT FOR: //name// [facility] ED Test Date: 2019-10-18 Test Time: 07:20:55 Pat Name: DAVID MESA Department: Room: [place] [address] Gender: F Seconds Inspector: [facility] : 1945 Requested By: Nico Carter Order Number: [id number] Lisa MD: Gilmer Nichols Measurements Intervals [place] Rate: 40 P: 57 OR: 141 QRS: 11 QRSD: 106 T: 55 QT: 637 QTc: 520 Interpretive Statements Sinus bradycardia Borderline ST depression, diffuse leads Prolonged QT interval Baseline wander in lead(s) II,III Compared to ECG 03/30/2019 00:15:35 Atrial fibrillation no longer present ST (T wave) deviation still present Electronically Signed On 10-19-2019 12:29:26 [employer]AST[employer] COORDINATOR by Gilmer Nichols [email or web address] <ELECTRONICALLY SIGNED> By: Gilmer Nichols MD, FACC 10/19/19 1229 9 9 Gilmer Nichols MD, FAC /EPI
== END 2019-10-18 16:00 | disposition home or self-care (01) | DRG 309 ==
LOC: M.ERS 02:53 → M.TBA-ER 06:13
PROVIDERS: Family Medicine; ADMIT Family Medicine
DX: I48.0 Paroxysmal atrial fibrillation (principal); D68.59 Other primary thrombophilia; I10 Essential (primary) hypertension; E03.9 Hypothyroidism, unspecified; N32.81 Overactive bladder; K21.9 Gastro-esophageal reflux disease without esophagitis; G25.81 Restless legs syndrome; Z79.01 Long term (current) use of anticoagulants; Z88.1 Allergy status to other antibiotic agents; Z90.49 Acquired absence of other specified parts of digestive tract; Z82.49 Family history of ischemic heart disease and other diseases of the circulatory system; Z72.89 Other problems related to lifestyle; Z90.711 Acquired absence of uterus with remaining cervical stump; Z88.8 Allergy status to other drugs, medicaments and biological substances

== ENCOUNTER → 2019-10-26 | Outpatient (CLI) | payer MEDICARE, OTHER ==
[~2019-10-26] MED LIST changes: +HYDROCHLOROTHIA25 M1; +TYLENOL325 M1 PO
== END ==
LOC: M.CT 11:45
DX: K44.9 Diaphragmatic hernia without obstruction or gangrene (principal); K76.89 Other specified diseases of liver; N83.209 Unspecified ovarian cyst, unspecified side

== ENCOUNTER → 2019-11-17 | Outpatient (CLI) | payer MEDICARE, OTHER ==
[~2019-11-17] MED LIST changes: -HYDROCHLOROTHIA25 M1; +HYDROCHLOROTHIA25 M1 PO; +KLOR-CON 10 ER10 MEQ PO; +LOPRESSOR50 MG PO; +METOPROLOL SUCC50 MG PO; +OMEPRAZOLE 20 M20 M1 PO; -VITAMIN D2000 UNIT PO; +VITAMIN D32000 UNI2 PO
[2019-11-17 12:19] LABS: ABSOLUTE EOSINOPHILS 0.1 thou/uL (0.0-0.7); ABSOLUTE LYMPHOCYTES 1.5 thou/uL (0.8-5.3); ABSOLUTE MONOCYTES 0.4 thou/uL (0.0-1.2); ABSOLUTE NEUTROPHILS 2.9 thou/uL (1.6-8.1); BASOPHILS 0.7 %; EOSINOPHILS 1.3 %; HEMATOCRIT 38.1 % (37.0-47.0); HEMOGLOBIN 13.3 gm/dL (12.0-15.0); LYMPHOCYTES 30.3 %; MCH 30.9 pg (26.0-34.0); MCHC 34.9 g/dL (28.0-37.0); MCV 88.5 fL (80.0-100.0); MONOCYTES 8.2 %; MPV 8.3 fl. (7.2-11.1); NUCLEATED RBCS 0 /100WBC; PLATELET COUNT* 145 thou/uL (150-400); POLYS 59.5 %; RBC 4.31 mil/uL (4.20-5.00); RDW-CV 12.7 % (10.5-14.5); WBC 4.9 thou/uL (4.0-11.0)
== END ==
LOC: M.LAB 11:48
PROVIDERS: Nurse Practitioner
DX: I48.0 Paroxysmal atrial fibrillation (principal)

== ENCOUNTER → 2019-11-27 | Day surgery (SDC) | payer MEDICARE, OTHER ==
--- NOTE | ~2019-11-27 | PROC ---
[address] [address] PROCEDURE REPORT Name: DAVID MESA Room: [facility]#: [id number] Admission: 11/27/19 Attend Phys: Avel Linder MD Discharge: Date of : 45 Report #: [id number] THIS REPORT FOR: //name// cc: Thony Antonio MD, Bruce D. MD ~ THIS REPORT FOR: //name// For GI report, please see the Provation report in Perceptive 7 content. By: 0635Medical Records Staff NEENA /VASYL
== END | disposition home or self-care (01) ==
LOC: M.LAB 08:32 → EDSTATUS 08:44 → M.SUR 08:46
DX: R10.32 Left lower quadrant pain (principal); D12.4 Benign neoplasm of descending colon; K57.30 Diverticulosis of large intestine without perforation or abscess without bleeding; K64.4 Residual hemorrhoidal skin tags; K21.9 Gastro-esophageal reflux disease without esophagitis; I10 Essential (primary) hypertension; E03.9 Hypothyroidism, unspecified; I48.91 Unspecified atrial fibrillation; Z90.49 Acquired absence of other specified parts of digestive tract; Z90.710 Acquired absence of both cervix and uterus; Z82.49 Family history of ischemic heart disease and other diseases of the circulatory system; Z79.899 Other long term (current) drug therapy; Z79.01 Long term (current) use of anticoagulants; Z88.2 Allergy status to sulfonamides; Z88.8 Allergy status to other drugs, medicaments and biological substances; Z98.890 Other specified postprocedural states

== ENCOUNTER → 2019-11-29 | Outpatient (CLI) | payer MEDICARE, OTHER ==
--- NOTE | 2019-11-29 16:28 | 2DMMODE ---
[place] [address] 2 D/M-MODE ECHOCARDIOGRAM Name: DAVID MESA Room: [facility]#: [id number] Admission: 11/29/19 Attend Phys: Nasir Gross, Discharge: Date of : 45 Date of Service: 11/29/19 1627 Report #: [id number] THIS REPORT FOR: cc: Thony Antonio MD, Bruce D. MD Holkins, John M. MD [facility] ~ APPROVED REPORT Study performed: 11/29/2019 12:36:34 EXAM: Comprehensive 2D, Doppler, and color-flow Echocardiogram BSA: 1.88 HR: 56 bpm BP: 144/78 mmHg Other Information Study Quality: Good Indications Atrial Fibrillation 2D Dimensions IVSd: 10.66 (7-11mm) LVOT Diam: 18.01 (18-24mm) LVDd: 39.52 mm PWd: 9.93 (7-11mm) Ascending Ao: 29.39 (22-36mm) LVDs: 26.09 (25-40mm) Aortic Root: 28.29 mm Volumes Left Atrial Volume (Systole) LA ESV Index: 41.50 mL/m2 Aortic Valve AoV Peak Elder.: 1.46 m/s AO Peak Gr.: 8.51 mmHg LVOT Max P.43 mmHg AO Mean Gr.: 4.27 mmHg LVOT Mean P.78 mmHg LVOT Max V: 1.27 m/s AO V2 VTI: 29.51 cm LVOT Mean V: 0.75 m/s OG (VTI): 2.52 cm2 LVOT V1 VTI: 29.17 cm AI [place]: 1.99 m/s2 AI PHT: 531.10 [place] [address] 2 D/M-MODE ECHOCARDIOGRAM Name: DAVID MESA Room: [facility]#: [id number] Admission: 11/29/19 Attend Phys: Nasir Gross, Discharge: Date of : 45 Date of Service: 11/29/19 1627 Report #: [id number] E/A Ratio: 1.56 MV Decel. Time: 223.77 ms MV E Max Elder.: 0.72 m/s MV PHT: 64.89 ms MVA (PHT): 3.39 cm2 TDI E/Lateral E': 7.20 E/Medial E': 5.54 Medial E' Elder.: 0.13 m/s Lateral E' Elder.: 0.10 m/s Pulmonary Valve PV Peak Elder.: 1.04 m/s PV Peak Gr.: 4.33 mmHg Tricuspid Valve RAP Estimate: 5.00 mmHg TR Peak Gr.: 45.52 mmHg RVSP: 50.52 mmHg PA Pressure: 50.52 mmHg Left Ventricle The left ventricle is normal size. There is normal LV segmental wall motion. There is normal left ventricular wall thickness. Left ventricular systolic function is normal. The left ventricular ejection fraction is within the normal range. LVEF is 60%. The left ventricular diastolic function is normal. Right Ventricle The right ventricle is normal size. The right ventricular systolic function is normal. Atria Left atrium is mildly dilated. The right atrium size is normal. Aortic Valve Mild aortic valve sclerosis. Trace aortic regurgitation. There is no aortic valvular stenosis. Mitral Valve The mitral valve is normal in structure. Mild mitral regurgitation. No evidence of mitral valve stenosis. Tricuspid Valve The tricuspid valve is normal in structure. Mild to moderate [place] [address] 2 D/M-MODE ECHOCARDIOGRAM Name: MOSHEDAVID Wesley Room: [facility]#: [id number] Admission: 11/29/19 Attend Phys: Nasir Gross, Discharge: Date of : 45 Date of Service: 11/29/19 1627 Report #: [id number] Pulmonic Valve The pulmonary valve is normal in structure. There is no pulmonic valvular regurgitation. Great Vessels The aortic root is normal in size. IVC is normal in size and collapses >50% with inspiration. Pericardium There is no pericardial effusion. <Conclusion> The left ventricle is normal size. There is normal left ventricular wall thickness. Left ventricular systolic function is normal. The left ventricular ejection fraction is within the normal range. LVEF is 60%. The right ventricle is normal size. Left atrium is mildly dilated. The right atrium size is normal. Mild aortic valve sclerosis. Trace aortic regurgitation. There is no aortic valvular stenosis. The mitral valve is normal in structure. Mild mitral regurgitation. No evidence of mitral valve stenosis. The tricuspid valve is normal in structure. Mild to moderate tricuspid regurgitation. IVC is normal in size and collapses >50% with inspiration. There is no pericardial effusion. There is normal LV segmental wall motion. <ELECTRONICALLY SIGNED> By: Gilmer Nichols MD, FACC 11/29/19 162 [id number] 26 Gilmer Nichols MD, FACC /INF
== END ==
LOC: M.CRD 12:37
DX: I08.3 Combined rheumatic disorders of mitral, aortic and tricuspid valves (principal); I11.9 Hypertensive heart disease without heart failure; I48.0 Paroxysmal atrial fibrillation

== ENCOUNTER → 2020-04-04 | Outpatient (CLI) | payer MEDICARE, OTHER | LOC: M.MRI 13:09 | PROVIDERS: ATTEND Family Medicine | DX: M51.27 Other intervertebral disc displacement, lumbosacral region (principal); M47.816 Spondylosis without myelopathy or radiculopathy, lumbar region; M48.061 Spinal stenosis, lumbar region without neurogenic claudication ==

== ENCOUNTER 2020-10-01 10:21 | Emergency (ER) | payer MEDICARE, OTHER ==
[~2020-10-01] VITALS: Ht 167.6 cm; Wt 81.7 kg
[2020-10-01 10:30] VITALS: BP 196/92
[2020-10-01 11:21] LABS: URINE BILIRUBIN NEGATIVE (Negative); URINE BLOOD NEGATIVE (Negative); URINE CLARITY CLEAR; URINE COLOR YELLOW; URINE GLUCOSE-RANDOM NEGATIVE (Negative); URINE KETONES NEGATIVE (Negative); URINE LEUKOCYTES-REFLEX NEGATIVE (Negative); URINE NITRITE-REFLEX NEGATIVE (Negative); URINE PROTEIN NEGATIVE (Negative); URINE SPECIFIC GRAVITY 1.025 (1.005-1.030)
== END 2020-10-01 15:01 | disposition left against medical advice (07) ==
LOC: M.ERS 10:21
PROVIDERS: Family Medicine
DX: K59.00 Constipation, unspecified (principal); Z53.21 Procedure and treatment not carried out due to patient leaving prior to being seen by health care provider

== ENCOUNTER 2021-02-17 11:22 | Emergency (ER) | payer MEDICARE, OTHER ==
[~2021-02-17] VITALS: Ht 167.6 cm; Wt 83.9 kg
[2021-02-17 13:35] VITALS: BP 149/71
== END 2021-02-17 13:36 | disposition home or self-care (01) ==
LOC: M.ERS 11:22
DX: R04.0 Epistaxis (principal); I10 Essential (primary) hypertension; I48.91 Unspecified atrial fibrillation; K21.9 Gastro-esophageal reflux disease without esophagitis; Z90.711 Acquired absence of uterus with remaining cervical stump; Z88.2 Allergy status to sulfonamides; Z88.6 Allergy status to analgesic agent

== ENCOUNTER 2021-02-17 16:01 | Emergency (ER) | payer MEDICARE, OTHER ==
[~2021-02-17] VITALS: Ht 167.6 cm; Wt 83.9 kg
[2021-02-17 16:35] VITALS: BP 180/91
== END 2021-02-17 16:35 | disposition home or self-care (01) ==
LOC: M.ERS 16:01
DX: R04.0 Epistaxis (principal); K21.9 Gastro-esophageal reflux disease without esophagitis; I48.91 Unspecified atrial fibrillation; Z90.711 Acquired absence of uterus with remaining cervical stump; G25.81 Restless legs syndrome; Z88.2 Allergy status to sulfonamides; Z88.1 Allergy status to other antibiotic agents; Z88.8 Allergy status to other drugs, medicaments and biological substances

== ENCOUNTER 2021-02-20 14:03 | Emergency (ER) | payer MEDICARE, OTHER ==
[~2021-02-20] VITALS: Ht 167.6 cm; Wt 83.9 kg
[2021-02-20 15:12] VITALS: BP 166/72
== END 2021-02-20 15:12 | disposition home or self-care (01) ==
LOC: M.ERS 14:03
DX: R04.0 Epistaxis (principal); K21.9 Gastro-esophageal reflux disease without esophagitis; G25.81 Restless legs syndrome; I48.91 Unspecified atrial fibrillation; Z88.1 Allergy status to other antibiotic agents; Z88.8 Allergy status to other drugs, medicaments and biological substances; Z79.899 Other long term (current) drug therapy; Z90.710 Acquired absence of both cervix and uterus